=== PATIENT | female | born 1965 | race Caucasian/White ===

== ENCOUNTER → 2024-12-07 07:44 | Outpatient (CLI) | payer OTHER, SELFPAY ==
--- NOTE | 2024-12-07 07:47 | DI.CT.S_ITS ---
PROCEDURE: CT ANGIO CHEST PE PROTOCOL INDICATIONS: rule out PE as cause of shortness of breath TECHNIQUE: After the administration of intravenous contrast, 2 mm thick sections acquired from the pulmonary apices to the posterior costophrenic angles. 3-dimensional maximum intensity projection (MIP) coronal and sagittal reformats were then acquired through the thorax. For radiation dose reduction, the following was used: automated exposure control, adjustment of mA and/or kV according to patient size. COMPARISON: None. FINDINGS: Image quality: Diagnostic. Pulmonary arteries: Pulmonary arteries are normal in size, and demonstrate no intraluminal filling defects to suggest central pulmonary embolism. Lower Neck: No enlarged lymph nodes. Thyroid: No thyroid nodules which require sonographic follow up, per consensus guidelines. Axillae: No enlarged lymph nodes. Chest Wall: Unremarkable. Bones: No lytic or blastic osseous lesions. No acute fracture or dislocation. Mild multilevel degeneration of the spine. Lungs and Pleura: No pneumothorax or pleural effusions. No consolidation. There is a mildly enhancing 3.3 cm right perihilar mass within the right lower lobe (series 5, image 150) which abuts the right lower lobar pulmonary artery and the right inferior returning pulmonary vein without evidence of invasion, with approximately 180? of contact. Heart: Heart size is normal. Small pericardial effusion. Moderate calcification involving the right coronary and left anterior descending coronary arteries. Thoracic Vessels: No aortic aneurysm. Mediastinum and Nancie: There is a mildly enhancing 1.5 cm nodule within the precardiac /retrosternal space abutting the pericardium No enlarged lymph nodes. Esophagus: No wall thickening. Small sliding hiatal hernia. Upper Abdomen: Visualized upper abdomen solid organs and bowel loops appear normal. IMPRESSION: 1. No pulmonary embolus. 2. 3.3 cm mildly enhancing right lower lobe mass and 1.5 cm precardiac/retrosternal mildly enhancing mediastinal nodule, both concerning for malignancy. Recommend core needle biopsy of the right lower lobe mass as well as PET-CT for staging. Dictated by: Andrew Logan M.D. on 12/07/2024 at 9:28 Approved by: Andrew Logan M.D. on 12/07/2024 at 9:46
[2024-12-07 08:22] LABS: Estimated Glomerular Filt Rate > 60 mL/min (>60)
== END ==
PROVIDERS: Radiology Diagnostic Radiology; PCP Family Medicine; Referring Provider Internal Medicine; Visit Provider Internal Medicine
DX: R91.8 Other nonspecific abnormal finding of lung field (principal); J44.9 Chronic obstructive pulmonary disease, unspecified; R06.02 Shortness of breath; Q85.9 Phakomatosis, unspecified; J45.50 Severe persistent asthma, uncomplicated; U09.9 Post COVID-19 condition, unspecified; Z79.52 Long term (current) use of systemic steroids
CPT/HCPCS: 36415; 71275; 82565; Q9967